=== PATIENT | female | born 2000 | race Caucasian/White ===

== ENCOUNTER 2018-09-03 19:15 | Emergency (ER) | payer BC ==
[2018-09-03 19:35] LABS: Pregu Control Background? CLEAR/WHITE (CLR/WHITE); Pregu Control Bar Appear? YES (CONTROL BAR); Specific Gravity 1.012 (1.002-1.036)
[2018-09-03 19:37] LABS: Pregnancy Test - Urine (BHCG) Negative (Negative)
--- NOTE | 2018-09-03 21:55 | CT ---
CT OF THE CHEST AND ABDOMEN AND PELVIS WITH CONTRAST 09/03/[address] of the chest, abdomen and pelvis was done after injection of IV contrast for evaluation of trauma. Axial slices were acquired, then coronal and sagittal reconstructions were done. CT OF THE THORAX: Mediastinum appears normal with no sign of hematoma. The aorta was normal in caliber and appearance. There is no pericardial fluid. The lungs are fully inflated and clear. There is no sign of contusion or pleural effusion. The ribs and sternum appeared intact. No fractures were seen. CT ABDOMEN AND PELVIS: The liver, spleen, pancreas, adrenal glands, gallbladder , kidneys and abdominal aorta all appear nor mal. There was no signs of laceration or hematoma in any organ. The bowel was unremarkable in appeara nce. No free air or free fluid was seen. There is some haziness in the soft tissues of the lower anterior abdominal wall just to the left of m idline at about the level of the iliac crest. Mild contusion is presumed without evidence of any foca l hematoma. CT of the pelvis is remarkable for a 5.2 cystic structure in the left adnexa. This is probably a simp le cyst, but an elective ultrasound is required to better assess the characteristics of this cyst. Th ere is probably a smaller cyst in the right adnexa of lesser concern. No free air or free fluid was s een. The bony pelvis and thoracolumbar spine appeared intact. No spinal fractures were seen. The hips appear intact. IMPRESSION: 1. Mild bruising of the low anterior abdominal wall on the left without evidence of internal fin dings. 2. 5.2 cm left adnexal cyst. Elective ultrasound needed. Findings discussed with Dr. Delgado at 2115 on 09/03/18. POS: HOME
--- NOTE | 2018-09-03 21:56 | RAD ---
CHEST TWO VIEWS: 09/03/18 The heart is normal in size and the lungs are clear. Slightly curvature of the thoracic spine is seen convexed right. No fractures or effusions were appreciated. The trachea is midline. IMPRESSION: No acute thoracic findings. POS: HOME
== END 2018-09-03 21:37 | disposition home or self-care (01) ==
LOC: BURERS 19:15
DX: S30.1XXA Contusion of abdominal wall, initial encounter (principal); S20.211A Contusion of right front wall of thorax, initial encounter; S00.83XA Contusion of other part of head, initial encounter; N83.202 Unspecified ovarian cyst, left side; F32.9 Major depressive disorder, single episode, unspecified; F17.290 Nicotine dependence, other tobacco product, uncomplicated; Z79.899 Other long term (current) drug therapy; V44.5XXA Car driver injured in collision with heavy transport vehicle or bus in traffic accident, initial encounter
CPT/HCPCS: 71046; 71260; 74177; 81025; 93005; 94760; G0390